=== PATIENT | male | born 1950 | race Caucasian/White ===

== ENCOUNTER 2018-06-26 07:09 | Day surgery (SDC) | payer MEDICARE ==
[~2018-06-26] VITALS: Ht 172.7 cm; Wt 97.5 kg
[2018-06-26] VITALS (10 sets, daily range): BP systolic 152–186; BP diastolic 73–88
[~2018-06-26 07:09] MED LIST: ASPIR-LOW81 MG PO; AZOR 5-40 MG T1 EACH ORAL; BENICAR HCT 401 EAC1 PO; CENTRUM SILVER1 EAC1 PO; GLUCOPHAGE850 MG PO; HYTRIN10 MG PO; MEVACOR40 MG PO; SERTRALINE HCL50 MG PO; VICTOZA 2-0.6 MG/0.1 SQ; WELLBUTRIN100 MG PO; ZESTRIL20 MG PO
[2018-06-26] MEDS ORDERED: HYTRIN10 MG PO (07:51)
[2018-06-26] MEDS ORDERED: LISINOPRIL40 MG ORAL (07:53)
--- NOTE | 2018-06-26 08:57 | Pre-Procedure Note/Attestation ---
Pre-Procedure Note/Attestation Complete Prior to Procedure Planned Procedure: not applicable Procedure Narrative: screening Indications for Procedure Pre-Operative Diagnosis: colonoscopy Attestation I attest that I discussed the nature of the procedure; its benefits; risks and complications; and alternatives (and the risks and benefits of such alternatives ), prior to the procedure, with the patient (or the patient's legal player services representative). I attest that, if there was a reasonable possibility of needing a blood transfusion, the patient (or the patient's legal player services representative) was given the [facility] standardized written summary, pursuant to the Jermaine Hillman Blood Safety Act ([place] Health and Safety Code # 1645, as amended). I attest that I re-evaluated the patient just prior to the surgery and that there has been no change in the patient's H&P, except as documented below: Alvin Rodrigez MD Jun 26, 2018 08:57
--- NOTE | 2018-06-26 08:59 | Short Stay Surgery H&P ---
History of Present Illness History of Present Illness Chief Complaint see recent office note HPI Tejinder Car is a 68 year old male who was admitted on for Colon Screening Patient History Allergies: Coded Allergies: Egg Yolk (Unverified Allergy, Unknown, 03/29/14) pain in throat Medication History Scheduled Aspirin* (Aspir-Low*), 81 MG PO DAILY, (Reported) Lisinopril* (Lisinopril*), 40 MG ORAL BID, (Reported) Lovastatin (Mevacor), 20 MG PO DAILY, (Reported) Multivitamin W-Minerals/Lutein (Centrum Silver Tablet), 1 EACH PO DAILY, ( Reported) Terazosin HCl (Terazosin HCl), 5 MG PO AM, (Reported) Scheduled PRN Terazosin HCl (Terazosin HCl), 10 MG PO QHS PRN for AT NIGHT, (Reported) Discontinued Medications Amlodipine Bes/Olmesartan Med (Tsering 5-40 Mg Tablet), 1 TAB ORAL DAILY, (Reported ) Discontinued Reason: Pt stopped taking med Bupropion HCl (Wellbutrin), 150 MG PO BID, (Reported) Discontinued Reason: Pt stopped taking med Liraglutide (Victoza 2-Sonu), 1.2 MG SQ BID, (Reported) Discontinued Reason: Pt stopped taking med Metformin Hcl* (Glucophage*), 1,000 MG PO BID, (Reported) Discontinued Reason: Pt stopped taking med Olmesartan/Hydrochlorothiazide 40-25MG (Benicar Hct 40-25 Mg Tablet), 1 EACH PO DAILY, (Reported) Discontinued Reason: Pt stopped taking med Sertraline Hcl* (Zoloft*), 50 MG PO BID, (Reported) Discontinued Reason: Pt stopped taking med Physical Exam Vital Signs Last Vital Signs Date Time Temp Pulse Resp B/P (MAP) Pulse Ox O2 Delivery O2 Flow Rate FiO2 06/26/18 07:58 Room Air 06/26/18 07:45 98.6 61 20 152/86 99 Plan Attestation Are the patient's medical conditions optimized for surgery? Alvin Rodrigez MD Jun 26, 2018 08:59
[2018-06-26] MEDS ORDERED: Lidocaine 1% MPF 10mg/ml 5ml ONE (09:00)
[2018-06-26] MEDS ORDERED: LR 1000ml ONE (09:00)
[2018-06-26] MEDS ORDERED: Propofol 200mg/20ml IV ONE (09:00)
[2018-06-26] MEDS ORDERED: LR 1000ml 1,000 ML IVLG SCH (09:18)
[2018-06-26] MEDS ORDERED: LORazepam Inj 2mg/ml 1ml IV PRN (09:30)
[2018-06-26] MEDS ORDERED: Meperidine 50mg/ml Inj(FOR RIGORS ONLY) IVP PRN (09:30)
[2018-06-26] MEDS ORDERED: DiphenhydrAMINE 50mg/ml Inj IVP PRN (09:30)
[2018-06-26] MEDS ORDERED: Midazolam 2mg/2ml Inj IVP PRN (09:30)
[2018-06-26] MEDS ORDERED: oxyCODONE HCL/Acetaminophen 5/325mg ORAL PRN (09:30)
[2018-06-26] MEDS ORDERED: Norco 5mg/325mg tab ORAL PRN (09:30)
[2018-06-26] MEDS ORDERED: HYDROcodone/Acetamin 7.5/325 tab ORAL PRN (09:30)
[2018-06-26] MEDS ORDERED: Ketorolac 30mg Inj IV PRN ×2 (09:30)
[2018-06-26] MEDS ORDERED: Hydromorphone 0.5mg/0.5ml inj IVP PRN (09:30)
[2018-06-26] MEDS ORDERED: fentaNYL 100 mcg/2 mL IV PRN (09:30)
[2018-06-26] MEDS ORDERED: Atropine Sulfate 0.4mg/ml inj IVP PRN (09:30)
[2018-06-26] MEDS ORDERED: Metoclopramide 10mg/2ml Inj IVP PRN (09:30)
--- NOTE | 2018-06-26 09:30 | Anethesia Preoperative Eval ---
Anesthesia Pre-op PMH/ROS General Date of Evaluation: Jun 26, 2018 Anesthesiologist: Claude ASA Score: ASA 3 Mallampati Score Class I : Soft palate, uvula, fauces, pillars visible Class II: Soft palate, uvula, fauces visible Class III: Soft palate, base of uvula visible Class IV: Only hard plate visible Mallampati Classification: Class III Surgeon: Rain Diagnosis: Abd Pain Surgical Procedure: Colonoscopy Anesthesia History: none Family History: no anesthesia problems Allergies: Coded Allergies: Egg Yolk (Unverified Allergy, Unknown, 03/29/14) pain in throat Medications: see eMAR Patient NPO?: Yes Past Medical History Cardiovascular: Reports: HTN, other - HL Pulmonary: Reports: asthma - Bronchitis, DAVID - CPAP Gastrointestinal/Genitourinary: Reports: GERD, other - Prostate CA Neurologic/Psychiatric: Reports: depression/anxiety Endocrine: Reports: DM Other: obesity - BMNI 35 Anesthesia Pre-op Phys. Exam Physician Exam Last Vital Signs Date Time Temp Pulse Resp B/P (MAP) Pulse Ox O2 Delivery O2 Flow Rate FiO2 06/26/18 07:58 Room Air 06/26/18 07:45 98.6 61 20 152/86 99 Constitutional: NAD Neurologic: CN 2-12 intact Cardiovascular: RRR Respiratory: CTA Gastrointestinal: S/NT/ND Airway Exam Mallampati Score: Class III MO: full ROM: limited Teeth: missing, intact Anesthesia Pre-op A/P Studies Pre-op Studies: EKG - 1degree AV Block Risk Assessment & Plan Assessment: ASA 3 Plan: TIVA Status Change Before Surgery: No Tod Arce MD Jun 26, 2018 09:30
--- NOTE | 2018-06-26 09:34 | Immediate Post-Op Evaluation ---
Immediate Post-Op Evalulation Immediate Post-Op Evalulation Procedure: Colonoscopy Date of Evaluation: Jun 26, 2018 Time of Evaluation: 10:02 IV Fluids: 200 LR Blood Products: 0 Estimated Blood Loss: 1 Urinary Output: 0 Blood Pressure Systolic: 186 Blood Pressure Diastolic: 83 Pulse Rate: 54 Respiratory Rate: 16 O2 Sat by Pulse Oximetry: 100 Temperature (Fahrenheit): 98.2 Pain Score (1-10): 1 Nausea: No Vomiting: No Complications 0 Patient Status: awake, reacts, patent, none Hydration Status: adequate Tod Arce MD Jun 26, 2018 09:34
--- NOTE | 2018-06-26 09:35 | 48 Hour Post Anesthesia Eval ---
Post Anesthesia Evaluation Procedure: Colonoscopy Date of Evaluation: Jun 26, 2018 Time of Evaluation: 12:12 Blood Pressure Systolic: 185 0: 84 Pulse Rate: 54 Respiratory Rate: 16 Temperature (Fahrenheit): 98.2 O2 Sat by Pulse Oximetry: 100 Airway: patent Nausea: No Vomiting: No Pain Intensity: 1 Hydration Status: adequate Cardiopulmonary Status: Stable Mental Status/LOC: patient returned to baseline Follow-up Care/Observations: 0 Post-Anesthesia Complications: 0 Follow-up care needed: ready to discharge Tod Arce MD Jun 26, 2018 09:35
--- NOTE | 2018-06-26 09:38 | Endoscopy Procedure Note ---
Endoscopy Procedure Note General Indication for Procedure: screening Procedures Performed: colonoscopy Operative Findings/Diagnosis: hemorrhoids Specimen: none Pt Tolerated Procedure Well: Yes Estimated Blood Loss: none Anesthesia Anesthesiologist: Tiffany Anesthesia: MAC Inserted Devices Implant(s) used?: No Quality Quality of Bowel Preparation: Good Did scope reach the cecum?: Yes Was there any complications?: No GI Core Measures 50 yrs or older w/o bx or poly: No 10yrs. F/U not recommended: Yes If not recommended, why?: Above average risk 10 yrs. F/U needed: Yes 18 years or older w/prev. colo: Yes <3yrs. since last colonoscopy: No Alvin Rodrigez MD Jun 26, 2018 09:38
--- NOTE | 2018-06-26 14:46 | Procedure Note ---
DATE OF PROCEDURE: 06/26/2018 SURGEON: Alvin Rodrigez M.D. ANESTHESIOLOGIST: Tod Arce M.D. PROCEDURE: Colonoscopy. ANESTHESIA: Per Dr. Arce. INSTRUMENT: Olympus adult flexible colonoscope. INDICATION: Screening colonoscopy evaluation. The procedure, risks, benefits, and possible consequences, including hemorrhage, aspiration, perforation and infection, and alternative treatments, were explained to the patient/legal guardian by Dr. Alvin Rodrigez and the patient/legal guardian understood and accepted these risks. DESCRIPTION OF PROCEDURE: After informed consent was obtained and the patient was adequately sedated, first rectal exam was performed, which was normal. Then, the scope was advanced from the rectum into the cecum and then subsequently to the terminal ileum. Quality of prep was good. The patient had normal colonoscopy examination except for one or two diverticula in the left colon. No obvious mass, polyp, or any pathology was seen. Retroflexion of rectum showed evidence of small nonbleeding internal hemorrhoids. SUMMARY OF FINDINGS: 1. Few scattered diverticula in the left colon. 2. Internal hemorrhoids. RECOMMENDATIONS: Repeat colonoscopy in five years. I want to thank, , for this kind referral. Alvin Rodrigez M.D. DR: SAMANTHA JOB#: [id number] CC:
--- NOTE | 2018-06-26 18:22 | Cardiology Report ---
APPROVED REPORT EKG Measurement Heart [id number] Sinus bradycardia with 1st degree AV block Otherwise normal ECG
== END 2018-06-26 11:20 | disposition home or self-care (01) ==
LOC: GAS 07:09
DX: Z12.11 Encounter for screening for malignant neoplasm of colon (principal); K57.30 Diverticulosis of large intestine without perforation or abscess without bleeding; K64.8 Other hemorrhoids; I10 Essential (primary) hypertension; G47.33 Obstructive sleep apnea (adult) (pediatric); F32.9 Major depressive disorder, single episode, unspecified; F41.9 Anxiety disorder, unspecified; E11.9 Type 2 diabetes mellitus without complications; E66.9 Obesity, unspecified; Z68.35 Body mass index [BMI] 35.0-35.9, adult; Z85.46 Personal history of malignant neoplasm of prostate; Z79.82 Long term (current) use of aspirin; Z91.012 Allergy to eggs
CPT/HCPCS: 82962; 93005; G0121; J0360; J2704; 94003; 94150

== ENCOUNTER 2018-07-18 09:09 | Outpatient (CLI) | payer MEDICARE ==
[~2018-07-18 09:09] MED LIST changes: +LISINOPRIL40 MG ORAL
[2018-07-18 09:22] VITALS: BP 161/74
--- NOTE | 2018-07-18 10:21 | GI Progress Note ---
Assessment/Plan Problems: (1) Esophagitis ICD Codes: K20.9 - Esophagitis, unspecified SNOMED: 21852284 (2) Polyp, colonic ICD Codes: K63.5 - Polyp of colon SNOMED: 88995315 (3) Hemorrhoids ICD Codes: K64.9 - Unspecified hemorrhoids SNOMED: 83119462 (4) Asthma ICD Codes: J45.909 - Asthma SNOMED: 795793643 (5) HTN (hypertension) ICD Codes: I10 - HTN (hypertension) SNOMED: 87752204 (6) DM (diabetes mellitus screen) ICD Codes: Z13.1 - DM (diabetes mellitus screen) SNOMED: 666959366 Status: stable Status Narrative Discussed with Dr. Rodrigez. Assessment/Plan SUMMARY OF FINDINGS: 1. Few scattered diverticula in the left colon. 2. Internal hemorrhoids. RECOMMENDATIONS: RTC prn Repeat colonoscopy in five years. Subjective Gastrointestinal/Abdominal: Reports: no symptoms Objective Last 24 Hour Vital Signs Date Time Temp Pulse Resp B/P (MAP) Pulse Ox O2 Delivery O2 Flow Rate FiO2 07/18/18 09:22 97.9 59 16 161/74 98 General Appearance: WD/WN, no apparent distress, alert Cardiovascular: normal rate Respiratory/Chest: normal breath sounds, no respiratory distress Abdominal Exam: normal bowel sounds, non tender, soft Extremities: normal range of motion, non-tender Bridger Vargas NP Jul 18, 2018 10:21
== END 2018-07-18 09:39 | disposition home or self-care (01) ==
LOC: PAN 09:09
DX: K20.9 Esophagitis, unspecified (principal); K63.5 Polyp of colon; K64.9 Unspecified hemorrhoids; J45.909 Unspecified asthma, uncomplicated; I10 Essential (primary) hypertension; E11.9 Type 2 diabetes mellitus without complications; K57.90 Diverticulosis of intestine, part unspecified, without perforation or abscess without bleeding; K64.8 Other hemorrhoids
CPT/HCPCS: 99212